=== PATIENT | female | born 2000 | race Two or more races ===

== ENCOUNTER 2025-03-31 17:21 | Emergency (ER) | payer BC ==
[~2025-03-31] VITALS: Ht 160 cm; Wt 58.1 kg
[2025-03-31 17:26] VITALS: BP 107/69
[2025-03-31 18:09] LABS: PLATELET COUNT (AUTO) 356 K/uL (179-408); RED BLOOD CELL COUNT(AUTO) 3.92 MIL/uL (3.63-4.92); RED CELL DISTRIBUTION WIDTH 12.6 % (12.3-17.7); WHITE BLOOD COUNT (AUTO) 7.7 K/uL (3.8-11.8)
[2025-03-31 18:18] LABS: CREATININE 0.5 mg/dL (0.6-1.3); SODIUM SERUM 139 mmol/L (136-145); UREA NITROGEN, BLOOD 10 mg/dL (7-18)
[2025-03-31 19:02] VITALS: BP 110/76; O2SAT 98
== END 2025-03-31 19:03 | disposition home or self-care (01) ==
LOC: ER 17:35
DX: R07.89 Other chest pain (principal); F17.200 Nicotine dependence, unspecified, uncomplicated
CPT/HCPCS: 36415; 71045; 84484; 85025; 85610; 85730; A4606; A4663